=== PATIENT | female | born 1965 | race Caucasian/White ===

== ENCOUNTER → 2016-10-07 | Outpatient (CLI) | payer BC ==
[~2016-10-07] MED LIST: PRENTAB26 PO
== END | disposition home or self-care (01) ==
LOC: C.PAPS 14:27
PROVIDERS: ATTEND Obstetrics & Gynecology
DX: Z01.419 Encounter for gynecological examination (general) (routine) without abnormal findings (principal); Z87.410 Personal history of cervical dysplasia

== ENCOUNTER → 2017-04-02 | Outpatient (CLI) | payer BC ==
--- NOTE | 2017-04-03 07:52 | MAMMOGRAPHY REPORT ---
BILATERAL DIGITAL SCREENING MAMMOGRAM TOMOSYNTHESIS WITH CAD: 04/02/2017 CLINICAL HISTORY: Routine screening. Patient has no complaints. TECHNIQUE: Breast tomosynthesis in addition to standard 2D mammography was performed. Current study was also evaluated with a Computer Aided Detection (CAD) system. COMPARISON: Comparison is made to exams dated: 04/01/2016 mammogram, 03/29/2015 mammogram, 10/13/2013 m ammogram, 10/12/2012 mammogram, 09/30/2011 mammogram - [facility], and 08/04/2002 mammo gram - [facility]. BREAST COMPOSITION: The tissue of both breasts is heterogeneously dense, which may obscure small mas ses. FINDINGS: There are possible grouped calcifications within the left upper outer quadrant, for which s pot magnification views are recommended for further evaluation. The remainder of both breasts are stable compared to prior exams, without suspicious masses, calcific ations, or areas of architectural distortion noted. Other scattered bilateral benign-appearing calci fications do not appear significantly changed. Asymmetry overlying the right pectoralis muscle on th e MLO view appears similar to prior exams including the 2013 exam and has the appearance of normal fi broglandular tissue on the tomosynthesis images. IMPRESSION: ACR BI-RADS CATEGORY 0: INCOMPLETE EVALUATION: NEED ADDITIONAL IMAGING EVALUATION Left upper outer quadrant calcifications, for which additional imaging evaluation is recommended. Th e patient will be called to schedule an appointment. Approximately 10% of breast cancers are not detected with mammography. A negative mammographic report should not delay biopsy if a clinically suggestive mass is present. Michelle Crawley M.D. ah/:04/02/2017 14:50:51 Bead Worker Sewing: Tamiko Murillo RT(R)(M), [facility] letter sent: Addl Imaging 0 BI-RADS Code: ACR BI-RADS Category 0: Incomplete Evaluation: Need Additional Imaging Evaluation
== END | disposition home or self-care (01) ==
LOC: C.MAMM 09:22
PROVIDERS: ATTEND Obstetrics & Gynecology
DX: Z12.31 Encounter for screening mammogram for malignant neoplasm of breast (principal); R92.1 Mammographic calcification found on diagnostic imaging of breast

== ENCOUNTER → 2017-04-10 | Outpatient (CLI) | payer BC ==
--- NOTE | 2017-04-10 15:38 | MAMMOGRAPHY REPORT ---
UNILATERAL LEFT DIGITAL DIAGNOSTIC MAMMOGRAM: 04/10/2017 CLINICAL HISTORY: Callback from screening mammogram for left breast calcifications. TECHNIQUE: Spot magnification left CC and ML views were obtained. COMPARISON: Comparison is made to exams dated: 04/02/2017 mammogram, 04/01/2016 mammogram, 03/29/2015 m ammogram, 10/13/2013 mammogram, 10/12/2012 mammogram, and 09/30/2011 mammogram - [facility]. BREAST COMPOSITION: The tissue of the left breast is heterogeneously dense, which may obscure small masses. FINDINGS: Spot magnification views of the left breast demonstrate scattered calcifications within the left upper outer quadrant, which are smudgy and amorphous on the cc view. Many of the calcification s demonstrate layering on the ML view, consistent with benign milk of calcium. The calcifications ar e likely not significantly changed compared to prior exams including the 2014 exam and likely represe nt milk of calcium/fibrocystic changes. No focal suspicious cluster of microcalcifications is seen. IMPRESSION: ACR-BI-RADS CATEGORY 3: PROBABLY BENIGN Scattered faint calcifications throughout the left upper outer quadrant are probably benign and likel y represent milk of calcium/fibrocystic changes. Recommend follow-up diagnostic mammograms of the le ft breast in 6 months to confirm stability on spot magnification views. The patient has been verbally notified of the results. Approximately 10% of breast cancers are not detected with mammography. A negative mammographic report should not delay biopsy if a clinically suggestive mass is present. Michelle Crawley M.D. ah/:04/10/2017 10:58:20 Councilman: Tamiko BRUNSON(Jd)(M), [facility] letter sent: Follow Up Recommended 3 BI-RADS Code: ACR-BI-RADS Category 3: Probably Benign
== END | disposition home or self-care (01) ==
LOC: C.MAMM 08:34
PROVIDERS: ATTEND Obstetrics & Gynecology
DX: R92.1 Mammographic calcification found on diagnostic imaging of breast (principal)

== ENCOUNTER → 2017-10-09 | Outpatient (CLI) | payer BC ==
--- NOTE | 2017-10-09 15:14 | MAMMOGRAPHY REPORT ---
UNILATERAL LEFT DIGITAL DIAGNOSTIC MAMMOGRAM TOMOSYNTHESIS WITH CAD: 10/09/2017 CLINICAL HISTORY: Short interval follow-up of left breast calcifications. The patient reports no new lumps or other complaints. TECHNIQUE: Breast tomosynthesis in addition to standard 2D mammography was performed. Current study was also evaluated with a Computer Aided Detection (CAD) system. Left CC and MLO 2D and tomosynthesi s images and spot magnification left CC and ML views were obtained. COMPARISON: Comparison is made to exams dated: 04/10/2017 mammogram, 04/02/2017 mammogram, 04/01/2016 mammogram, 03/29/2015 mammogram, 10/13/2013 mammogram, and 10/12/2012 mammogram - [facility]. BREAST COMPOSITION: The tissue of the left breast is heterogeneously dense, which may obscure small masses. FINDINGS: Spot magnification views of the left breast again demonstrate scattered calcifications thro ughout the left upper outer quadrant. The calcifications are smudgy and amorphous on the cc view and the majority of the calcifications demonstrate layering on the lateral view and are consistent with milk of calcium. The calcifications are stable compared to spot magnification views from April 13. The calcifications are benign and compatible with milk of calcium/fibrocystic changes. The isabelle maría elena of the left breast is stable compared to prior exams, without suspicious masses, calcifications , or areas of architectural distortion noted. IMPRESSION: ACR BI-RADS CATEGORY 2: BENIGN Calcification throughout the left upper outer quadrant are stable compared to the March 2017 exam and are benign and compatible with milk of calcium/fibrocystic changes. There is no mammographic leonarda dence of malignancy. Return to annual mammogram screening schedule is recommended, due March 2018. The patient has been verbally notified of the results. Approximately 10% of breast cancers are not detected with mammography. A negative mammographic report should not delay biopsy if a clinically suggestive mass is present. Michelle Crawley M.D. /:10/09/2017 11:27:52 Venetian Blind Cleaner And Repairer: Keila DIAL)(M), [facility] letter sent: Normal 1/2 BI-RADS Code: ACR BI-RADS Category 2: Benign
== END | disposition home or self-care (01) ==
LOC: C.MAMM 09:52
PROVIDERS: ATTEND Obstetrics & Gynecology
DX: R92.1 Mammographic calcification found on diagnostic imaging of breast (principal)